=== PATIENT | male | born 1980 | race Native Hawaiian/Other Pacific Islander ===

== ENCOUNTER 2016-08-03 20:06 | Emergency (ER) | payer OTHER ==
[~2016-08-03] VITALS: Ht 162.6 cm; Wt 90.7 kg
[~2016-08-03 20:06] MED LIST: NORCO 10/325***1 TAB PO
[2016-08-03 20:15] VITALS: TEMP 98.4
[2016-08-03 21:20] LABS: PLATELET COUNT 347 K/uL (142-355)
[2016-08-03 21:53] LABS: POTASSIUM 4.2 mmol/L (3.6-5.2); SODIUM 138 mmol/L (136-145)
[2016-08-03 23:08] VITALS: BP 151/106
== END 2016-08-03 23:11 | disposition home or self-care (01) ==
LOC: ED 20:06
DX: F19.10 Other psychoactive substance abuse, uncomplicated (principal)
CPT/HCPCS: 80053; 80307; 81000; 82550; 83880; 84484; 85027; 85610; 85730; 93005; 99284; G0479

== ENCOUNTER 2017-02-26 12:21 | Observation (INO) | payer OTHER ==
[~2017-02-26] VITALS: Ht 162.6 cm; Wt 89.0 kg
[2017-02-26] VITALS (8 sets, daily range): BP systolic 130–158; BP diastolic 83–113; TEMP 98–98.7; Ht 162.6 cm; Wt 89.0 kg
[2017-02-26 13:41] LABS: PLATELET COUNT 302 K/uL (142-355)
[2017-02-26 13:44] LABS: POTASSIUM 3.4 mmol/L (3.6-5.2); SODIUM 133 mmol/L (136-145)
[2017-02-26 13:55] LABS: PARTIAL THROMBOPLASTIN TIME 27.8 SECONDS (24.5-33.6)
[2017-02-27] VITALS: BP 107/63; TEMP 97.5
[2017-02-27 04:00] VITALS: BP 108/59; TEMP 97.9
[2017-02-27 05:18] LABS: PLATELET COUNT 252 K/uL (142-355)
[2017-02-27 05:39] LABS: POTASSIUM 3.7 mmol/L (3.6-5.2); SODIUM 137 mmol/L (136-145)
[2017-02-27 08:00] VITALS: BP 102/54; TEMP 97.9
== END 2017-02-27 11:23 | disposition home or self-care (01) ==
LOC: ED 12:21 → MED/SURG 14:45
PROVIDERS: ADMIT Emergency Medicine
DX: N20.0 Calculus of kidney (principal)
CPT/HCPCS: 36415; 80053; 80307; 81000; 83735; 85027; 85610; 85730; 96361; 96365; 96372; 96374; 96375; 99220; 99284; G0378; G0479; J0696; J1170; J1200; J1650; J1885; J2175; J2405; J3490

== ENCOUNTER 2018-09-10 23:02 | Emergency (ER) | payer OTHER ==
[~2018-09-10] VITALS: Ht 162.6 cm; Wt 99.8 kg
[2018-09-10 23:58] LABS: PLATELET COUNT 335 K/uL (142-355)
[2018-09-11 00:33] LABS: POTASSIUM 4.1 mmol/L (3.6-5.2); SODIUM 140 mmol/L (136-145)
[2018-09-11 01:27] VITALS: BP 145/69; TEMP 98.7
== END 2018-09-11 01:28 | disposition home or self-care (01) ==
LOC: ED 23:02
PROVIDERS: Emergency Medicine
DX: R10.84 Generalized abdominal pain (principal); R07.89 Other chest pain
CPT/HCPCS: 80053; 81000; 82550; 82553; 84484; 85027; 93005; 96372; 99283; J1885